=== PATIENT | female | born 1955 | race Caucasian/White ===

== ENCOUNTER 2020-04-14 17:28 | Emergency (ER) | payer OTHER, SELFPAY ==
[2020-04-14 20:47] VITALS: BP 110/65
== END 2020-04-14 20:47 | disposition home or self-care (01) ==
LOC: ED 17:28
DX: R50.9 Fever, unspecified (principal); R53.1 Weakness; M79.10 Myalgia, unspecified site; Z20.828 Contact with and (suspected) exposure to other viral communicable diseases
CPT/HCPCS: Q0092; U0003-CS